=== PATIENT | female | born 1990 | race Hispanic/Latino ===

== ENCOUNTER 2019-01-31 13:14 | Inpatient (IN) | payer OTHER ==
[2019-01-31] MEDS ORDERED: Sodium Chloride 0.9% 1,000 ML IV STA (14:07)
[2019-01-31 14:43] LABS: BASO % 0.3 % (0.0-2.0); EOS # 0.1 K/uL (0.0-0.7); EOS % 0.7 % (0.0-4.0); HEMOGLOBIN 15.5 g/dL (12.0-16.0); LYMPH # 3.4 K/uL (1.0-4.3); LYMPH % 36.9 % (20.0-40.0); MEAN CELL VOLUME 80.6 fl (81.0-99.0); MEAN CORPUSCULAR HEMOGLOBIN 28.7 pg (27.0-31.0); MEAN CORPUSCULAR HGB CONC 35.6 g/dL (33.0-37.0); MEAN PLATELET VOLUME 8.5 fl (7.2-11.7); MONO # 0.6 K/uL (0.0-0.8); NEUT # 5.1 K/uL (1.8-7.0); NEUT % 55.1 % (50.0-75.0); NRBC % 0.4 % (0.0-0.0); RBC 5.42 Mil/uL (3.80-5.20); RED CELL DISTRIBUTION WIDTH 12.6 % (11.5-14.5); WHITE BLOOD COUNT 9.2 K/uL (4.8-10.8)
--- NOTE | 2019-01-31 14:47 | ED PDOC ---
Syncope/Near Syncope/Dizziness Time Seen by Provider: 01/31/19 13:59 Chief Complaint (Nursing): Dizziness/Lightheaded Chief Complaint (Provider): Dizziness/Lightheaded History Per: Patient History/Exam Limitations: no limitations Onset/Duration Of Symptoms: Days (x1 week) Current Symptoms Are (Timing): Still Present Additional Complaint(s): Dipak Portillo is a 28 year old female with hypothyroidism and celiac disease, who presents to the emergency department complaining of worsening dizziness and weakness, onset x1 week. Patient states she went to her primary care provider, who told her she is having orthostatic hypertension and tachycardia and instructed her to go straight to the hospital. She further states she is too weak to sit and over the past week, is too weak to hold her 's bottle. Patient reports that since giving , patient has had th yroid problems and also has ulcerative colitis. She has also had extreme dry skin and alopecia since her thyroid problems started. Patient is suppose to follow up with her steam frame operator but is not had the work up yet. PMD: Dr. cynthia mariee [phone] Hog Trader: Dr. Leighann Khoury [phone] Past Medical History Reviewed: Historical Data, Nursing Documentation, Vital Signs Vital Signs: Last Vital Signs Temp 97.6 F 01/31/19 13:15 Pulse 101 H 01/31/19 13:15 Resp 16 01/31/19 13:15 BP 99/69 L 01/31/19 13:15 Pulse Ox 98 01/31/19 13:15 - Medical History PMH: Hypothyroidism Other PMH: ulcerative colitis; alopecia - Surgical History Surgical History: No Surg Hx - Family History Family History: States: Unknown Family Hx - Home Medications Home Medications: Ambulatory Orders Medication Instructions Recorded Levothyroxine [Synthroid] 125 mcg PO DAILY 01/31/19 Multivitamin [Multi-Vitamin Daily] 1 tab PO DAILY 01/31/19 - Allergies Allergies/Adverse Reactions: Allergies Allergy/AdvReac Type Severity Reaction Status Date / Time gluten Allergy DIARRHEA Verified 01/31/19 13:15 Review of Systems ROS Statement: Except As Marked, All Systems Reviewed And Found Negative Constitutional: Positive for: Weakness Neurological: Positive for: Weakness, Dizziness Physical Exam - Reviewed Nursing Documentation Reviewed: Yes Vital Signs Reviewed: Yes - Physical Exam Appears: Positive for: Non-toxic, No Acute Distress Head Exam: Positive for: ATRAUMATIC, NORMOCEPHALIC Skin: Positive for: Normal Color (visibly thinning hair), Warm, Dry Eye Exam: Positive for: Normal appearance, EOMI, PERRL ENT: Positive for: Normal ENT Inspection Cardiovascular/Chest: Positive for: Regular Rate, Rhythm (while lying flat), Other (heart rate jumpted to 140 and orthostatic was halted due to patient discomfort). Negative for: Murmur Respiratory: Positive for: Normal Breath Sounds. Negative for: Respiratory Distress Gastrointestinal/Abdominal: Positive for: Normal Exam, Soft. Negative for: Tenderness Extremity: Positive for: Normal ROM. Negative for: Pedal Edema, Deformity Neurologic/Psych: Positive for: Alert, Oriented Comments: Patient had normal vitals while lying flat. Upon sitting up, patient became extremely dizzy and had difficulty speaking - Laboratory Results Result Diagrams: 02/02/19 04:50 02/02/19 04:50 - ECG O2 Sat by Pulse Oximetry: 98 (RA) Pulse Ox Interpretation: Normal Medical Decision Making Medical Decision Making: Time: 1405 A/P: Work up for hypertension with a history of autoimmune disorder, labs, IV fluids, and then reassess patient. Probable admission. --Ekg --CMP --T4 --Troponin I --TSH --T3 --CBC with differential --Chest portable xray --Sodium chloride 1,000 ml --Urinalysis Time: 1651 Chest xray FINDINGS: LUNGS: No active pulmonary disease. PLEURA: No significant pleural effusion identified, no pneumothorax apparent. CARDIOVASCULAR: No aortic atherosclerotic calcification present. Normal cardiac size. No pulmonary vascular congestion. OSSEOUS STRUCTURES: No significant abnormalities. VISUALIZED UPPER ABDOMEN: Normal. OTHER FINDINGS: None. IMPRESSION: No active disease. Scribe Attestation: Documented by Kobe Arteaga, acting as a scribe for Cira Araujo MD. Provider Scribe Attestation: All medical record entries made by the Scribe were at my direction and personally dictated by me. I have reviewed the chart and agree that the record accurately reflects my personal performance of the history, physical exam, medical decision making, and the department course for this patient. I have also personally directed, reviewed, and agree with the discharge instructions and disposition. Disposition - Clinical Impression Clinical Impression: Dizziness of unknown cause, Hypotension - Patient ED Disposition Is Patient to be Admitted: Yes - Disposition Disposition Time: 15:00 Condition: GUARDED
[2019-01-31 14:49] LABS: SQUAMOUS EPITHIAL 2 /hpf (0-5); URINE BILIRUBIN NEGATIVE (NEGATIVE); URINE BLOOD NEGATIVE (NEGATIVE); URINE CLARITY SLIGHTY-CLOUDY (Clear); URINE COLOR YELLOW (YELLOW); URINE GLUCOSE (UA) NEG (NEGATIVE); URINE LEUKOCYTE ESTERASE NEG Leu/uL (Negative); URINE PROTEIN NEGATIVE (NEGATIVE); URINE UROBILINOGEN 0.2-1.0 mg/dL (0.2-1.0)
[2019-01-31 15:05] LABS: ALB/GLOB RATIO 1.4 (1.0-2.1); ALT/SGPT 27 U/L (9-52); AST/SGOT 30 U/L (14-36); BLOOD UREA NITROGEN 18 mg/dl (7-17); GFR NON-AFRICAN AMERICAN > 60
[2019-01-31 15:22] LABS: T3 0.892 nmol/L (1.49-2.60)
--- NOTE | 2019-01-31 16:54 | RAD ---
Date of service: 01/31/2019 HISTORY: possible admission COMPARISON: No prior. FINDINGS: LUNGS: No active pulmonary disease. PLEURA: No significant pleural effusion identified, no pneumothorax apparent. CARDIOVASCULAR: No aortic atherosclerotic calcification present. Normal cardiac size. No pulmonary vascular congestion. OSSEOUS STRUCTURES: No significant abnormalities. VISUALIZED UPPER ABDOMEN: Normal. OTHER FINDINGS: None. IMPRESSION: No active disease.
[2019-01-31] MEDS: Sodium Chloride 0.9% 1,000 ML IV SCH (21:35)
--- NOTE | 2019-02-01 04:50 | CON ---
DATE: 01/31/2019 ENDOCRINOLOGY CONSULTATION LOCATION: In ER holding and will be going to [address] [place] [address]. HISTORY OF PRESENT ILLNESS: This is a 28-year-old female with known history of hypothyroidism, on levothyroxine replacement therapy, presenting here with severe bouts of dizziness, lightheadedness, and generalized body weakness and was evaluated by her primary physician to have also static hypotension and tachycardia and was requested to present to the emergency room for further evaluation and admission thereof. She is being referred now for endocrine evaluation of known history of hypothyroidism thereof. PAST MEDICAL HISTORY: History of hypothyroidism, diagnosed and has been on levothyroxine at 125 mcg daily and is followed closely by her associate material handler as noted. History of celiac disease with GI-related manifestations thereof. On further inquiry, she actually was diagnosed to have ulcerative colitis with intermittent bouts of diarrhea and abdominal pain as noted. She also has recent onset of alopecia which presumed is also autoimmune related at this time. FAMILY HISTORY: Positive for hypertension and heart disease. SOCIAL HISTORY: The patient has a supportive family. No known substance use. REVIEW OF SYSTEMS: Admits to generalized body weakness with progressive bouts of dizziness and lightheadedness, worse on the day of admission. No chest pains, palpitations or PNDs. Her oral intake has been variable with nausea, dyspepsia, and vague upper abdominal pains. No recent alterations of bowel or urinary patterns at this time. PHYSICAL EXAMINATION: GENERAL: This is an average-built female in no apparent distress. VITAL SIGNS: With a blood pressure of 90/70, pulse of 100 beats a minute and regular, temperature 98, respirations 20. Height is 5 feet 11 inches. Weight is 152 pounds. HEENT: Head is normocephalic. Eyes anicteric with pink conjunctivae. Funduscopy not possible at this time. Ears, nose, and throat otherwise normal. NECK: Supple. Thyroid gland shows nodular thyromegaly, which is firm and nontender. HEART: Hyperdynamic precordium. S1 and S2, rapid and regular. LUNGS: Clear to auscultation. ABDOMEN: Flat, soft with positive bowel sounds. EXTREMITIES: No peripheral edema. Pulses are +2 bilaterally. LABORATORY DATA: Chemistry shows a BUN of 18, sodium 129, potassium 5.9, chloride 88, CO2 of 23, glucose is 98, creatinine is 0.8. Her thyroxine level is 11.3 with T3 of 0.8 and a TSH of 4.3. ASSESSMENT: This is a 28-year-old female with severe bouts of dizziness and lightheadedness with apparent also static hypotension and is now being referred for endocrine evaluation and management. She also has euvolemic hyponatremia. The etiology of which has to be ascertained at this time. 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 The possibility also of hypoadrenalism and concomitant hyponatremia and mild hyperkalemia also has to be excluded as a possible autoimmune-related endocrinopathy. PLAN OF MANAGEMENT: We will continue her levothyroxine given as 125 mcg once daily, and we will leave the final dose adjustments to her associate material handler to be done on the outpatient. We will, however, obtain a baseline serum cortisol and ACTH level for tomorrow morning as ordered. We will obtain serial chemistries and supplement accordingly as needed. We will continue the IV hydration as given. We will also recommend a neurological evaluation and even possibly a tilt test as indicated. We will follow. Mireya Johnson MD
[2019-02-01] MEDS: Sodium Chloride 0.9% 1,000 ML IV SCH (05:49)
[2019-02-01] MEDS: Levothyroxine 125 MCG TAB PO SCH (05:50)
[2019-02-01 06:34] LABS: ALB/GLOB RATIO 1.1 (1.0-2.1); ALT/SGPT 29 U/L (9-52); AST/SGOT 27 U/L (14-36); BLOOD UREA NITROGEN 14 mg/dl (7-17); CALCIUM 9.1 mg/dL (8.4-10.2); GFR NON-AFRICAN AMERICAN > 60
[2019-02-01] MEDS: Multivitamin With Minerals Tab PO SCH (08:56)
[2019-02-01] MEDS ORDERED: Patient's Own Med (Multivitamin [Multi-Vitamin Daily] 1 TAB) PO SCH (09:00)
--- NOTE | 2019-02-01 17:53 | PN ---
DATE: 02/01/2019 ENDOCRINOLOGY FOLLOWUP LOCATION: Room 416. SUBJECTIVE: .This is a 28-year-old female presenting here with severe bouts of dizziness and lightheadedness, supervening hyponatremia and mild hyperkalemia, and is now being followed closely for metabolic management as noted thereof. She has ongoing normal saline infusion since admission as given. LABORATORY DATA: She remains clinically and biochemically euthyroid at this time. However, her laboratories showed a sodium of 135 which has improved overnight from the initial sodium of 129. Her potassium is 4.9 and it was 5 yesterday as well as noted. Her chloride is 104, CO2 is 21, glucose 91 and creatinine 0.7. Her serum cortisol level was done today, her fasting serum cortisol level is 3.6 which is actually low as noted. Her T4 is 8.86 with a TSH of 3.26 which is really being slightly subclinically hypothyroid but she has been on levothyroxine replacement therapy as given. ASSESSMENT: This is a 28-year-old female with progressive bouts of severe dizziness and lightheadedness, worse in the last few days prior to admission with supervening hyponatremia and mild hyperkalemia and the remote possibility of an autoimmune endocrinopathy, i.e., Rory's disease or primary hypoadrenalism or adrenal insufficiency has to be excluded at this time, especially with her other concomitant autoimmune endocrinopathy present at this time. PLAN OF MANAGEMENT: We will obtain a more confirmatory and definite hormonal testing with a Cortrosyn stimulation test to be undertaken tomorrow morning as ordered. We will obtain a fasting cortisol level followed by administration of Cortrosyn 250 mcg IV push followed an hour later prior to repeat serum cortisol levels accordingly. We will obtain serial chemistries and supplement accordingly needed. This test will confirm and/or indicate the presence of underlying adrenal insufficiency and the need for long-term steroid or cortisol replacement therapy. For now, we will continue the levothyroxine given as 125 mcg daily and she will follow with her sock turner on the outpatient for further dose adjustments as indicated. Mireya Johnson MD
--- NOTE | 2019-02-01 19:09 | CARD ---
APPROVED REPORT Date of service: 01/31/2019 EKG Measurement Heart [id number] <Conclusion> Normal sinus rhythm Normal ECG
--- NOTE | 2019-02-02 02:50 | CP.PCM.HP ---
Present on Admission - Present on Admission Any Indicators Present on Admission: No Review of Systems - Review of Systems All systems: reviewed and no additional remarkable complaints except Review of Systems: as per HPI Past Patient History - Past Medical History & Family History Past Medical History?: Yes - Past Social History Smoking Status: Never Smoked - CARDIAC Hx Cardiac Disorders: No - PULMONARY Hx Respiratory Disorders: No - NEUROLOGICAL Hx Neurological Disorder: No - HEENT Hx HEENT Problems: No - RENAL Hx Chronic Kidney Disease: No - ENDOCRINE/METABOLIC Hx Endocrine Disorders: Yes (hypothyroidism) Hx Hypothyroidism: Yes - HEMATOLOGICAL/ONCOLOGICAL Hx Blood Disorders: No Hx AIDS: No Hx Human Immunodeficiency Virus (HIV): No - INTEGUMENTARY Hx Dermatological Problems: No - MUSCULOSKELETAL/RHEUMATOLOGICAL Hx Musculoskeletal Disorders: No Hx Falls: No - GASTROINTESTINAL Hx Gastrointestinal Disorders: Yes Other/Comment: Celiac Disease - GENITOURINARY/GYNECOLOGICAL Hx Genitourinary Disorders: No - PSYCHIATRIC Hx Psychophysiologic Disorder: No Hx Substance Use: No - SURGICAL HISTORY Hx Surgeries: No - ANESTHESIA Hx Anesthesia: No Meds Allergies/Adverse Reactions: Allergies Allergy/AdvReac Type Severity Reaction Status Date / Time gluten Allergy DIARRHEA Verified 01/31/19 13:15 Results - Vital Signs Recent Vital Signs: Last Vital Signs Temp 97.6 F 02/02/19 01:00 Pulse 82 02/02/19 01:00 Resp 16 02/02/19 01:00 BP 93/55 L 02/02/19 01:00 Pulse Ox 100 02/02/19 01:00 - Labs Result Diagrams: 01/31/19 14:15 02/01/19 05:30 Labs: Laboratory Results - last 24 hr 02/01/19 02/01/19 02/01/19 05:30 05:30 06:23 Sodium 135 Potassium 4.9 Chloride 104 Carbon Dioxide 21 L Anion Gap 15 BUN 14 Creatinine 0.7 Est GFR ( Amer) > 60 Est GFR (Non-Af Amer) > 60 POC Glucose (mg/dL) 86 Random Glucose 91 Calcium 9.1 Total Bilirubin 0.4 AST 27 ALT 29 Alkaline Phosphatase 65 Total Protein 7.5 Albumin 4.0 Globulin 3.5 Albumin/Globulin Ratio 1.1 Thyroxine (T4) 8.86 TSH 3rd Generation 3.26 Cortisol AM Sample 3.6 L 02/01/19 02/01/19 02/01/19 10:29 15:51 21:21 Sodium Potassium Chloride Carbon Dioxide Anion Gap BUN Creatinine Est GFR ( Amer) Est GFR (Non-Af Amer) POC Glucose (mg/dL) 93 119 H 131 H Random Glucose Calcium Total Bilirubin AST ALT Alkaline Phosphatase Total Protein Albumin Globulin Albumin/Globulin Ratio Thyroxine (T4) TSH 3rd Generation Cortisol AM Sample Assessment & Plan (1) Hypotension Status: Acute (2) Recurrent syncope Status: Acute (3) Celiac disease Status: Acute (4) Hypothyroidism Status: Acute (5) Alopecia areata Status: Acute
[2019-02-02 05:24] LABS: HEMOGLOBIN 12.7 g/dL (12.0-16.0); MEAN CELL VOLUME 82.5 fl (81.0-99.0); MEAN CORPUSCULAR HEMOGLOBIN 28.6 pg (27.0-31.0); MEAN CORPUSCULAR HGB CONC 34.7 g/dL (33.0-37.0); RBC 4.45 Mil/uL (3.80-5.20); RED CELL DISTRIBUTION WIDTH 12.7 % (11.5-14.5); WHITE BLOOD COUNT 5.8 K/uL (4.8-10.8)
[2019-02-02 05:36] LABS: BLOOD UREA NITROGEN 11 mg/dl (7-17); CALCIUM 9.1 mg/dL (8.4-10.2); GFR NON-AFRICAN AMERICAN > 60
[2019-02-02] MEDS: Levothyroxine 125 MCG TAB PO SCH (05:51)
[2019-02-02 08:00] VITALS: RESP 18
[2019-02-02] MEDS: Multivitamin With Minerals Tab PO SCH (09:34)
[2019-02-02 15:49] VITALS: BP 94/58; PULSE 82; TEMP 98
--- NOTE | 2019-02-02 19:34 | CARD ---
APPROVED REPORT Date of service: 02/02/2019 EXAM: Two-dimensional and M-mode echocardiogram with Doppler and color Doppler. Other Information Quality : GoodRhythm : NSR INDICATION Hypotension 2D DIMENSIONS IVSd0.68 (0.7-1.1cm)LVDd4.01 (3.9-5.9cm) LVOT Diameter2.12 (1.8-2.4cm)PWd0.86 (0.7-1.1cm) IVSs0.82 (0.8-1.2cm)LVDs2.92 (2.5-4.0cm) FS (%) 27.1 %PWs1.12 (0.8-1.2cm) M-Mode DIMENSIONS Left Atrium (MM)2.36 (2.5-4.0cm)IVSd0.86 (0.7-1.1cm) Aortic Root2.93 (2.2-3.7cm)LVDd4.39 (4.0-5.6cm) Aortic Cusp Exc.2.01 (1.5-2.0cm)PWd0.79 (0.7-1.1cm) IVSs1.04 cmFS (%) 33 % LVDs2.93 (2.0-3.8cm)PWs1.13 cm Aortic Valve AoV Peak Ovhsaogx71.0cm/sAoV VTI16.4cmAO Peak GR.2mmHg LVOT Peak Sbpyszds90.5cm/sLVOT VTI16.25cmAO Mean GR.2mmHg CELINE (VMAX)1.55bn3WJN (VTI)1.86cm2 Mitral Valve MV E Qdlbtojf23.0cm/sMV DECEL [id number] A Zzehpymr68.8cm/s MV GTW61lvF/A ratio1.8MVA (PHT)4.02cm2 TDI Lateral E' Peak V15.73cm/sMedial E' Peak V13.61cm/sE/Lateral E'4.3 E/Medial E'5.0 LEFT VENTRICLE The left ventricle is normal size. There is normal left ventricular wall thickness. The left ventricular systolic function is normal. The estimated ejection fraction is 55-60% No regional wall motion abnormalities noted.. The left ventricular diastolic function is normal. No left ventricle thrombus noted on this study. There is no ventricular septal defect visualized. There is no left ventricular aneurysm. There is no mass noted in the left ventricle. RIGHT VENTRICLE The right ventricle is normal size. There is normal right ventricular wall thickness. The right ventricular systolic function is normal. ATRIA The left atrium size is normal. The right atrium size is normal. The interatrial septum is intact with no evidence for an atrial septal defect. AORTIC VALVE The aortic valve is normal in structure. No aortic regurgitation is present. There is no aortic valvular stenosis. There is no aortic valvular vegetation. MITRAL VALVE The mitral valve is normal in structure. There is no evidence of mitral valve prolapse. There is no mitral valve stenosis. There is no mitral valve regurgitation noted. TRICUSPID VALVE The tricuspid valve is normal in structure. There is no tricuspid valve regurgitation noted. There is no tricuspid valve prolapse or vegetation. There is no tricuspid valve stenosis. PULMONIC VALVE The pulmonary valve is normal in structure. There is no pulmonic valvular regurgitation. There is no pulmonic valvular stenosis. GREAT VESSELS The aortic root is normal in size. The ascending aorta is normal in size. The pulmonary artery is normal. The IVC is normal in size and collapses >50% with inspiration. PERICARDIAL EFFUSION There is no pericardial effusion. There is no pleural effusion. <Conclusion> The estimated ejection fraction is 55-60% The left ventricular diastolic function is normal. The left atrium size is normal. There is no tricuspid valve regurgitation noted. The IVC is normal in size and collapses >50% with inspiration.
--- NOTE | 2019-02-03 00:29 | CP.PCM.DIS ---
Provider - Provider Date of Admission: 01/31/19 15:47 Attending physician: Alisha Oneill MD Consults: 01/31/19 15:47 Endocrinology Consult Stat Comment: hypothyroid with hypotension Consulting Provider: Mireya Johnson Consulting Physician: Mireya Johnson Reason for Consult: hypothyroid with hypotension Time Spent in preparation of Discharge (in minutes): 25 Diagnosis - Discharge Diagnosis (1) Hypotension Status: Acute (2) Recurrent syncope Status: Acute (3) Celiac disease Status: Acute (4) Hypothyroidism Status: Acute (5) Alopecia areata Status: Acute Hospital Course - Lab Results Lab Results: Most Recent Lab Values WBC 5.8 K/uL (4.8-10.8) 02/02/19 04:50 RBC 4.45 Mil/uL (3.80-5.20) 02/02/19 04:50 Hgb 12.7 g/dL (12.0-16.0) D 02/02/19 04:50 Hct 36.7 % (34.0-47.0) 02/02/19 04:50 MCV 82.5 fl (81.0-99.0) 02/02/19 04:50 MCH 28.6 pg (27.0-31.0) 02/02/19 04:50 MCHC 34.7 g/dL (33.0-37.0) 02/02/19 04:50 RDW 12.7 % (11.5-14.5) 02/02/19 04:50 Plt Count 212 K/uL (130-400) 02/02/19 04:50 MPV 8.5 fl (7.2-11.7) 01/31/19 14:15 Neut % (Auto) 55.1 % (50.0-75.0) 01/31/19 14:15 Lymph % (Auto) 36.9 % (20.0-40.0) 01/31/19 14:15 Kimball % (Auto) 7.0 % (0.0-10.0) 01/31/19 14:15 Eos % (Auto) 0.7 % (0.0-4.0) 01/31/19 14:15 Baso % (Auto) 0.3 % (0.0-2.0) 01/31/19 14:15 Neut # (Auto) 5.1 K/uL (1.8-7.0) 01/31/19 14:15 Lymph # (Auto) 3.4 K/uL (1.0-4.3) 01/31/19 14:15 Kimball # (Auto) 0.6 K/uL (0.0-0.8) 01/31/19 14:15 Eos # (Auto) 0.1 K/uL (0.0-0.7) 01/31/19 14:15 Baso # (Auto) 0.0 K/uL (0.0-0.2) 01/31/19 14:15 Sodium 138 mmol/l (132-148) 02/02/19 04:50 Potassium 4.5 MMOL/L (3.6-5.0) 02/02/19 04:50 Chloride 105 mmol/L (98-107) 02/02/19 04:50 Carbon Dioxide 24 mmol/L (22-30) 02/02/19 04:50 Anion Gap 14 (10-20) 02/02/19 04:50 BUN 11 mg/dl (7-17) 02/02/19 04:50 Creatinine 0.7 mg/dl (0.7-1.2) 02/02/19 04:50 Est GFR ( Amer) > 60 02/02/19 04:50 Est GFR (Non-Af Amer) > 60 02/02/19 04:50 POC Glucose (mg/dL) 130 mg/dL (65-110) H 02/02/19 16:12 Random Glucose 93 mg/dL (65-105) 02/02/19 04:50 Calcium 9.1 mg/dL (8.4-10.2) 02/02/19 04:50 Total Bilirubin 0.4 mg/dl (0.2-1.3) 02/01/19 05:30 AST 27 U/L (14-36) 02/01/19 05:30 ALT 29 U/L (9-52) 02/01/19 05:30 Alkaline Phosphatase 65 U/L (38-126) 02/01/19 05:30 Troponin I < 0.0120 ng/mL (0.00-0.120) 01/31/19 14:15 Total Protein 7.5 G/DL (6.3-8.2) 02/01/19 05:30 Albumin 4.0 g/dL (3.5-5.0) 02/01/19 05:30 Globulin 3.5 gm/dL (2.2-3.9) 02/01/19 05:30 Albumin/Globulin Ratio 1.1 (1.0-2.1) 02/01/19 05:30 Thyroxine (T4) 8.86 ug/dl (5.5-11.0) 02/01/19 05:30 Total T3 0.892 nmol/L (1.49-2.60) L 01/31/19 14:15 TSH 3rd Generation 3.26 mIU/ML (0.46-4.68) 02/01/19 05:30 Cortisol AM Sample 3.3 ug/dL (4.46-22.7) L 02/02/19 11:00 ACTH 861 pg/mL (6-50) H 02/01/19 05:30 Urine Color Yellow (YELLOW) 01/31/19 14:15 Urine Clarity Slighty-cloudy (Clear) 01/31/19 14:15 Urine pH 7.0 (5.0-8.0) 01/31/19 14:15 Ur Specific [place] 1.018 (1.003-1.030) 01/31/19 14:15 Urine Protein Negative mg/dL (NEGATIVE) 01/31/19 14:15 Urine Glucose (UA) Neg mg/dL (NEGATIVE) 01/31/19 14:15 Urine Ketones Trace mg/dL (NEGATIVE) 01/31/19 14:15 Urine Blood Negative (NEGATIVE) 01/31/19 14:15 Urine Nitrate Negative (NEGATIVE) 01/31/19 14:15 Urine Bilirubin Negative (NEGATIVE) 01/31/19 14:15 Urine Urobilinogen 0.2-1.0 mg/dL (0.2-1.0) 01/31/19 14:15 Ur Leukocyte Esterase Neg Jennyfer/uL (Negative) 01/31/19 14:15 Urine RBC (Auto) < 1 /hpf (0-3) 01/31/19 14:15 Urine Microscopic WBC 2 /hpf (0-5) 01/31/19 14:15 Ur Squamous Epith Cells 2 /hpf (0-5) 01/31/19 14:15 Thyroperoxidase Ab 407 IU/mL (<9) H 02/01/19 05:30 Discharge Exam - Head Exam Head Exam: ATRAUMATIC, NORMOCEPHALIC Discharge Plan - Follow Up Plan Condition: IMPROVED Disposition: HOME/ ROUTINE
--- NOTE | 2019-02-03 01:13 | PN ---
DATE: 02/02/2019 ENDOCRINOLOGY FOLLOWUP NOTE LOCATION: Room 416. SUBJECTIVE: This is a 28-year-old female, admitted with progressive dizziness and lightheadedness with supervening hyponatremia and has received normal saline infusion since admission to the present time as noted. She has improved clinically and metabolically as noted thereof. LABORATORY DATA: Her repeat chemistries showed a BUN of 11, sodium 138, potassium 4.5, chloride 105, CO2 of 24, glucose 93, and creatinine 0.7. Her baseline cortisol level done yesterday was 3.2 and so a Cortrosyn stimulation test was undertaken today as noted. Her ACTH level is 861 with a cortisol level of 3.6 mcg/dL. The Cortrosyn stimulation test done today showed a baseline cortisol level of 3.2 and a stimulation cortisol level of 3.3 mcg/dL which is a flat response thereof confirming the presence of primary adrenal insufficiency or hypoadrenalism. 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 The possibility, however, of having an evolving polyglandular autoimmune syndrome has also been discussed with the patient at bedside. PLAN OF MANAGEMENT: We will initiate a stat dose of hydrocortisone given as 50 mg IV piggyback tonight as ordered. Moreover because the patient is clinically and hemodynamically stable otherwise and has a baby at home, we will schedule her for discharge with oral steroid therapy as given. We will prescribe hydrocortisone given as 20 mg every 8 a.m. daily and 10 mg every 6 p.m. daily as ordered. Copies of her lab reports will be given to the patient, and she will follow with her medical claims examiner on outpatient for ongoing endocrine followup and management. Mireya Johnson MD
[2019-02-03 17:27] VITALS: O2SAT 98
== END 2019-02-02 19:30 | disposition home or self-care (01) | DRG 315 ==
LOC: H.ER 13:14 → H.ERHOLD 15:47 → H.TEL 19:35
PROVIDERS: ADMIT Internal Medicine; ATTEND Internal Medicine
DX: I95.89 Other hypotension (principal); E87.1 Hypo-osmolality and hyponatremia; E27.1 Primary adrenocortical insufficiency; K51.80 Other ulcerative colitis without complications; E87.5 Hyperkalemia; E06.3 Autoimmune thyroiditis; E31.0 Autoimmune polyglandular failure; K90.0 Celiac disease; L63.9 Alopecia areata, unspecified; Z79.890 Hormone replacement therapy